=== PATIENT | female | born 1965 | race American Indian/Alaskan Native ===

== ENCOUNTER 2019-05-13 17:25 | Emergency (ER) | payer MEDICARE ==
[2019-05-13] MEDS ORDERED: MORPHINE 4 MG/1 ML INJ IV ONE ×2 (18:49→22:40)
--- NOTE | 2019-05-13 19:09 | Emergency Department Report ---
HPI - General Chief Complaint: Back Pain/Injury Time Seen by Provider: 05/13/19 18:16 - HPI HPI: 54-year-old female presents to the emergency department with 3 complaints. First, the patient complains of some upper left-sided back pain, around the shoulder blade, that started earlier today. It is sharp in nature and worsens with certain movements. Secondly, the patient complains of some generalized shortness of breath that also started today. She denies any significant cough, fever, nausea, vomiting. Lastly, the patient has a history of chronic eczema and she says that it has worsened over the past few days to the point where her skin is using and her hands have become raw. Patient has a primary care physician, Dr. Barkley, but has not seen them regarding her symptoms. 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 ED Past Medical Hx - Past Medical History Hx Diabetes: Yes Hx Asthma: Yes Additional medical history: ECZEMA - Social History Smoking Status: Former Smoker Substance Use Type: Prescribed - Medications Home Medications: Home Medications Medication Instructions Recorded Confirmed Last Taken Type Gabapentin [Neurontin] 300 mg PO Q8HR 05/13/19 05/13/19 Unknown History HYDROcodone/APAP 5-325 [[place] 1 each PO Q6HR PRN #10 tablet 05/13/19 Unknown Rx 5/325] LORazepam [Ativan] 0.5 mg PO BID PRN 05/13/19 05/13/19 Unknown History Prednisone [predniSONE 10 mg 10 mg PO .TAPER #1 tab.ds.pk 05/13/19 Unknown Rx (6-Day Pack, 21 Tabs)] Sulfamethoxazole/Trimethoprim 1 each PO BID #14 tablet 05/13/19 Unknown Rx [Bactrim DS TAB] carBAMazepine [Carbamazepine] 100 mg PO DAILY 05/13/19 05/13/19 Unknown History dilTIAZem 120 mg PO DAILY 05/13/19 05/13/19 Unknown History hydrOXYzine HCL [Atarax] 25 mg PO Q8H PRN #20 05/13/19 Unknown Rx metHOTREXate(DOSE WEEKLY ONLY) 2.5 mg PO QWEEK 05/13/19 05/13/19 Unknown History [metHOTREXate (DOSE WEEKLY ONLY)] predniSONE [Deltasone] 10 mg PO QDAY 05/13/19 05/13/19 Unknown History ED Review of Systems ROS: Stated complaint: SOB LT BACK PAIN Other details as noted in HPI Comment: All other systems reviewed and negative Constitutional: denies: chills, fever Respiratory: shortness of breath. denies: cough Cardiovascular: denies: chest pain, edema Gastrointestinal: denies: abdominal pain, vomiting Genitourinary: denies: dysuria, discharge Musculoskeletal: back pain. denies: joint swelling Skin: rash, lesions Neurological: denies: headache, numbness Physical Exam - Physical Exam Vital Signs: Vital Signs 05/13/19 05/13/19 17:30 18:20 Temperature 98.9 F Pulse Rate 119 H 109 H Respiratory 19 18 Rate Blood Pressure 134/84 Blood Pressure 132/46 [Left] O2 Sat by Pulse 96 96 Oximetry Physical Exam: GENERAL: The patient is well-developed well-nourished. HENT: Normocephalic. Atraumatic. Patient has moist mucous membranes. EYES: Extraocular motions are intact. Pupils equal reactive to light bilaterally. NECK: Supple. Trachea is midline. CHEST/LUNGS: Clear to auscultation. No cough or during examination. No accessory muscle use. There is no respiratory distress noted. HEART/CARDIOVASCULAR: Regular. There is mild tachycardia. There is no murmur. ABDOMEN: Abdomen is soft, nontender. Patient has normal bowel sounds. There is no abdominal distention. SKIN: Patient has slightly thickened skin and some mild erythema to the majority of her skin. The hands appear raw and excoriated down to an underlying skin layer. There is no bleeding, weeping or drainage. Patient has multiple excoriations all of her body consistent with her complaint of pruritus. NEURO: The patient is awake, alert, and oriented. The patient is cooperative. The patient has no focal neurologic deficits. Normal speech. MUSCULOSKELETAL: There is no tenderness or deformity. There is no limitation range of motion. There is no evidence of acute injury. BACK: There is no midline thoracic or lumbar tenderness to palpation, step-off or deformity. There is some reproducible thoracic left-sided paraspinal tenderness to palpation just inside of the scapula. ED Course Vital Signs 05/13/19 05/13/19 17:30 18:20 Temperature 98.9 F Pulse Rate 119 H 109 H Respiratory 19 18 Rate Blood Pressure 134/84 Blood Pressure 132/46 [Left] O2 Sat by Pulse 96 96 Oximetry ED Medical Decision Making - Lab Data Result diagrams: 05/13/19 19:19 05/13/19 19:19 - EKG Data -: EKG Interpreted by Me EKG shows normal: sinus rhythm, axis, intervals, QRS complexes, ST-T waves Rate: normal - EKG Data When compared to previous EKG there are: previous EKG unavailable Interpretation: normal EKG - Radiology Data Radiology results: report reviewed, image reviewed interpreted by me: Chest x-ray does not show any acute process. There are no pleural effusions, obvious pneumonia and there is no pneumothorax. CTA CHEST WITH IV CONTRAST INDICATION: SOB, elevated dimer. TECHNIQUE: Axial CT images were obtained through the chest after injection of 100 MLO Omnipaque 350 IV contrast. 3 plane MIP reconstructions were produced. All CT scans at this location are performed using CT dose reduction for ALARA by means of automated exposure control. COMPARISON: One view of the chest from earlier today. FINDINGS: PULMONARY ARTERIES: Well-opacified without distinct thromboemboli. AO RTA AND ARTERIES: No acute abnormality. MEDIASTINUM: No significant abnormality of the heart or other mediastinal structures. LUNGS: No suspicious consolidation, nodule or mass. No pneumothorax or pleural effusion. ADDITIONAL FINDINGS: There is bilateral axillary lymphadenopathy. An index node located superiorly on the right measures 1.8 cm in short axis dimension on image 19 of series 2. UPPER ABDOMEN: No acute findings. BONES: No significant osseous abnormality. IMPRESSION: 1. No CT evidence for pulmonary embolism. 2. Nonspecific bilateral axillary lymphadenopathy without additional evidence of malignancy in the chest. - Medical Decision Making This patient presents to the emergency department with 3 complaints: Shortness of breath, upper left-sided back pain, and her skin condition. The patient's CBC did not show any significant leukocytosis or anemia. Metabolic panel was mostly unremarkable. The patient had a slightly elevated lactic acid level that came down to a normal level after some treatment. She had a chest x-ray that did not show any pleural effusions, pneumonia, pneumothorax, focal consolidation, or any other acute process. After an elevated d-dimer level, the patient had a CT angiography of the chest that did not show any pulmonary embolism. Incidentally there was some axillary lymphadenopathy found but no underlying malignancy. The patient has history of eczema and presents with a diffuse skin condition that includes slightly erythematous and thickened skin to the majority of her body with her hands appear raw from excoriations and picking at scabs and wounds. There is no warmth, fluctuance. Patient was given some pain medication, IV fluid resuscitation, Solu-Medrol and antibiotics. Vital signs are stable throughout her ED course including being afebrile. The patient has good follow-up with both primary care and dermatology. She appears safe for discharge home at this time. She's been given another referral for dermatology, and a referral for an orthopedist regarding her back pain. Patient will be discharged home with antibiotics, steroids, Atarax for pruritus, and pain medication. She will return to the emergency Department with any worsening of her symptoms or any acute distress. - Differential Diagnosis eczema, dermatitis, pneumonia, PE Critical care attestation.: If time is entered above; I have spent that time in minutes in the direct care of this critically ill patient, excluding procedure time. ED Disposition Clinical Impression: Dermatitis, Shortness of breath Back pain Qualifiers: Back pain location: thoracic back pain Chronicity: unspecified Back pain laterality: left Qualified Code(s): M54.6 - Pain in thoracic spine Eczema Qualifiers: Eczema type: unspecified Qualified Code(s): L30.9 - Dermatitis, unspecified Disposition: DC-01 TO HOME OR SELFCARE Is pt being admited?: No Condition: Stable Instructions: Eczema (ED), Acute Rash (ED), Dyspnea (ED), Back Pain (ED) Additional Instructions: Please follow-up with your primary care physician and agricultural research engineer in the next few days. I have given you a referral for a local orthopedist, Dr. Cruz, to follow up regarding your back pain. I have also given you a number referral for a agricultural research engineer, Dr. Tavera. Take the medications as prescribed. Return to the emergency Department with any worsening of your symptoms or any acute distress. You have been prescribed a medication that is sedating and therefore should not be taken prior to driving, working, and responsible for children and in no way should be mixed with alcohol of any quantity. Prescriptions: hydrOXYzine HCL [Atarax] 25 mg PO Q8H PRN #20 PRN Reason: Itching Sulfamethoxazole/Trimethoprim [Bactrim DS TAB] 1 each PO BID #14 tablet HYDROcodone/APAP 5-325 [[place] 5/325] 1 each PO Q6HR PRN #10 tablet PRN Reason: Pain Prednisone [predniSONE 10 mg (6-Day Pack, 21 Tabs)] 10 mg PO .TAPER #1 tab.ds.pk Referrals: PRIMARY CARE, [Primary Care Provider] - 2-3 Days GISELL CRUZ MD [Staff Physician] - 2-3 Days KHUSHI TAVERA MD [Staff Physician] - 2-3 Days Time of Disposition: 23:44
[2019-05-13] MEDS ORDERED: SODIUM CHLORIDE 0.9% 1000 ML 1,000 ML IV ONE ×2 (19:18→20:46)
[2019-05-13 19:40] LABS: Basophils % (Auto) 0.2 % (0.0-1.8); Eosinophils # (Auto) 1.6 K/mm3 (0.0-0.4); Eosinophils % (Auto) 14.2 % (0.0-4.3); Hemoglobin 13.1 gm/dl (10.1-14.3); Lymphocytes # (Auto) 1.2 K/mm3 (1.2-5.4); Lymphocytes % (Auto) 10.9 % (13.4-35.0); Mean Corpuscular HGB Conc 33 % (30-34); Mean Corpuscular Volume 91 fl (79-97); Monocytes # (Auto) 0.7 K/mm3 (0.0-0.8); Monocytes % (Auto) 6.5 % (0.0-7.3); Platelet Count 399 K/mm3 (140-440); Red Blood Count 4.43 M/mm3 (3.65-5.03)
[2019-05-13] MEDS ORDERED: VANCOMYCIN/NS 1 GM/250 ML 1 GM/250 ML BAG IV ONE (19:49)
[2019-05-13 20:02] LABS: Alanine Aminotransferase 8 units/L (7-56); Albumin 3.2 g/dL (3.9-5); BUN/Creatinine Ratio 13; Blood Urea Nitrogen 10 mg/dL (7-17); Calcium 9.1 mg/dL (8.4-10.2); Hemolysis Index 29
[2019-05-13] MEDS ORDERED: diphenhydrAMINE 50 MG/ML VIAL IV ONE ×2 (20:53→22:40)
[2019-05-13] MEDS ORDERED: methylPREDNISolone Sod Succinate 125 MG/2 ML INJ IV ONE (20:54)
--- NOTE | 2019-05-13 21:23 | XRay Report ---
CHEST 1 VIEW 05/13/2019 8:45 PM INDICATION / CLINICAL INFORMATION: SOB. COMPARISON: None available. FINDINGS: SUPPORT DEVICES: None. HEART / MEDIASTINUM: No significant abnormality. LUNGS / PLEURA: No significant pulmonary or pleural abnormality. No pneumothorax. ADDITIONAL FINDINGS: No significant additional findings. IMPRESSION: 1. No acute abnormality of the chest. Signer Name: Caleb Alfred MD Signed: 05/13/2019 9:18 PM Workstation Name: [id number]
--- NOTE | 2019-05-13 22:37 | Cat Scan Report ---
CTA CHEST WITH IV CONTRAST INDICATION: SOB, elevated dimer. TECHNIQUE: Axial CT images were obtained through the chest after injection of 100 MLO Omnipaque 350 IV contrast. 3 plane MIP reconstructions were produced. All CT scans at this location are performed using CT dose reduction for ALARA by means of automated exposure control. COMPARISON: One view of the chest from earlier today. FINDINGS: PULMONARY ARTERIES: Well-opacified without distinct thromboemboli. AORTA AND ARTERIES: No acute abnormality. MEDIASTINUM: No significant abnormality of the heart or other mediastinal structures. LUNGS: No suspicious consolidation, nodule or mass. No pneumothorax or pleural effusion. ADDITIONAL FINDINGS: There is bilateral axillary lymphadenopathy. An index node located superiorly on the right measures 1.8 cm in short axis dimension on image 19 of series 2. UPPER ABDOMEN: No acute findings. BONES: No significant osseous abnormality. IMPRESSION: 1. No CT evidence for pulmonary embolism. 2. Nonspecific bilateral axillary lymphadenopathy without additional evidence of malignancy in the ch est. Signer Name: Caleb Alfred MD Signed: 05/13/2019 10:32 PM Workstation Name: [id number]
[2019-05-13 23:19] LABS: Bilirubin,Urine NEG (Negative); Color,Urine Yellow (Yellow)
[2019-05-13 23:20] LABS: Blood,Urine NEG (Negative); Protein,Urine <15 mg/dL mg/dL (Negative)
[2019-05-13 23:28] LABS: Mucus,Urine FEW /HPF
[2019-05-14 00:43] VITALS: BP 157/89
== END 2019-05-14 00:30 | disposition home or self-care (01) ==
LOC: ED 17:25
DX: M54.6 Pain in thoracic spine (principal); F03.90 Unspecified dementia, unspecified severity, without behavioral disturbance, psychotic disturbance, mood disturbance, and anxiety; R06.02 Shortness of breath; L30.9 Dermatitis, unspecified; E11.9 Type 2 diabetes mellitus without complications; J45.909 Unspecified asthma, uncomplicated; Z87.891 Personal history of nicotine dependence; Z91.013 Allergy to seafood; Z79.899 Other long term (current) drug therapy
CPT/HCPCS: 36415; 71045; 71275; 80053; 81001; 82140; 84484; 85025; 85379; 87040; 93005; 93010; 96365; 96375; 96376; 99285; J1200; J2270; J2930; J3370; J7030; Q9967

== ENCOUNTER 2019-05-29 15:30 | Emergency (ER) | payer MEDICARE ==
[2019-05-29] MEDS ORDERED: SODIUM CHLORIDE 0.9% 1000 ML 1,000 ML IV ONE (17:07)
[2019-05-29] MEDS ORDERED: methylPREDNISolone Sod Succinate 125 MG/2 ML INJ IV ONE (17:08)
[2019-05-29] MEDS ORDERED: MORPHINE 4 MG/1 ML INJ IV ONE (17:08)
[2019-05-29] MEDS ORDERED: ONDANSETRON 4 MG/2 ML INJ IV ONE (17:08)
--- NOTE | 2019-05-29 17:12 | Emergency Department Report ---
ED General Adult HPI - General Chief complaint: Dyspnea/Respdistress Stated complaint: CHRIS Time Seen by Provider: 05/29/19 16:58 Source: EMS Mode of arrival: Stretcher Limitations: No Limitations - History of Present Illness Initial comments: Patient is 54 years old female with history of severe eczema, asthma and diabetes. Patient recently moved by her family from [place] and has been followed by [facility]. Patient brought to the emergency room via EMS with a chief complaint of shortness of breath, back pain and generalized pain secon rl to eczema. Patient was seen here on May 13 and had a CTA chest which is negative for PE or malignancy. This and stated that she had the same symptoms from last time. The patient denied any chest pain, abdominal pain, nausea or vomiting. - Related Data Home Medications Medication Instructions Recorded Confirmed Last Taken Gabapentin [Neurontin] 300 mg PO Q8HR 05/13/19 05/13/19 Unknown LORazepam [Ativan] 0.5 mg PO BID PRN 05/13/19 05/13/19 Unknown carBAMazepine [Carbamazepine] 100 mg PO DAILY 05/13/19 05/13/19 Unknown dilTIAZem 120 mg PO DAILY 05/13/19 05/13/19 Unknown metHOTREXate(DOSE WEEKLY ONLY) 2.5 mg PO QWEEK 05/13/19 05/13/19 Unknown [metHOTREXate (DOSE WEEKLY ONLY)] predniSONE [Deltasone] 10 mg PO QDAY 05/13/19 05/13/19 Unknown Previous Rx's Medication Instructions Recorded Last Taken Type HYDROcodone/APAP 5-325 [[place] 1 each PO Q6HR PRN #10 tablet 05/13/19 Unknown Rx 5/325] Prednisone [predniSONE 10 mg 10 mg PO .TAPER #1 tab.ds.pk 05/13/19 Unknown Rx (6-Day Pack, 21 Tabs)] Sulfamethoxazole/Trimethoprim 1 each PO BID #14 tablet 05/13/19 Unknown Rx [Bactrim DS TAB] hydrOXYzine HCL [Atarax] 25 mg PO Q8H PRN #20 05/13/19 Unknown Rx Allergies Allergy/AdvReac Type Severity Reaction Status Date / Time egg AdvReac Hives Verified 05/13/19 17:28 Fish Containing Products AdvReac Hives Verified 05/13/19 17:28 ED Review of Systems ROS: Stated complaint: CHRIS Other details as noted in HPI Comment: All other systems reviewed and negative Constitutional: denies: chills, fever Respiratory: shortness of breath. denies: cough, orthopnea, SOB with exertion, SOB at rest, wheezing Cardiovascular: denies: chest pain, palpitations Gastrointestinal: denies: abdominal pain, nausea, vomiting, diarrhea, constipation Musculoskeletal: back pain, arthralgia, myalgia. denies: joint swelling Neurological: denies: headache, weakness, numbness, paresthesias, confusion, abnormal gait ED Past Medical Hx - Past Medical History Hx Diabetes: Yes Hx Asthma: Yes Additional medical history: ECZEMA - Social History Smoking Status: Never Smoker Substance Use Type: Marijuana - Medications Home Medications: Home Medications Medication Instructions Recorded Confirmed Last Taken Type Gabapentin [Neurontin] 300 mg PO Q8HR 05/13/19 05/13/19 Unknown History HYDROcodone/APAP 5-325 [[place] 1 each PO Q6HR PRN #10 tablet 05/13/19 Unknown Rx 5/325] LORazepam [Ativan] 0.5 mg PO BID PRN 05/13/19 05/13/19 Unknown History Prednisone [predniSONE 10 mg 10 mg PO .TAPER #1 tab.ds.pk 05/13/19 Unknown Rx (6-Day Pack, 21 Tabs)] Sulfamethoxazole/Trimethoprim 1 each PO BID #14 tablet 05/13/19 Unknown Rx [Bactrim DS TAB] carBAMazepine [Carbamazepine] 100 mg PO DAILY 05/13/19 05/13/19 Unknown History dilTIAZem 120 mg PO DAILY 05/13/19 05/13/19 Unknown History hydrOXYzine HCL [Atarax] 25 mg PO Q8H PRN #20 05/13/19 Unknown Rx metHOTREXate(DOSE WEEKLY ONLY) 2.5 mg PO QWEEK 05/13/19 05/13/19 Unknown History [metHOTREXate (DOSE WEEKLY ONLY)] predniSONE [Deltasone] 10 mg PO QDAY 05/13/19 05/13/19 Unknown History ED Physical Exam - General Limitations: No Limitations General appearance: alert, in no apparent distress - Head Head exam: Present: atraumatic, normocephalic, normal inspection - Eye Eye exam: Present: normal appearance - ENT ENT exam: Present: normal exam, normal orophraynx, mucous membranes moist - Neck Neck exam: Present: normal inspection, full ROM. Absent: tenderness, meningismus, lymphadenopathy, thyromegaly - Respiratory Respiratory exam: Present: normal lung sounds bilaterally - Cardiovascular Cardiovascular Exam: Present: tachycardia - GI/Abdominal GI/Abdominal exam: Present: soft, normal bowel sounds. Absent: distended, tenderness, rebound, rigid - Extremities Exam Extremities exam: Present: normal inspection, full ROM - Neurological Exam Neurological exam: Present: alert, oriented X3, CN II-XII intact, normal gait, reflexes normal. Absent: motor sensory deficit - Psychiatric Psychiatric exam: Present: normal mood - Skin Skin exam: Present: warm, rash, other (severe, generalized eczema) ED Course Vital Signs 05/29/19 05/29/19 16:10 19:54 Temperature 97.7 F Pulse Rate 117 H 87 Respiratory 24 17 Rate Blood Pressure 137/84 Blood Pressure 128/74 [Left] O2 Sat by Pulse 100 96 Oximetry ED Medical Decision Making - Lab Data Result diagrams: 05/29/19 17:46 05/29/19 17:46 - EKG Data -: EKG Interpreted by Dc EKG shows normal: sinus rhythm Rate: normal - EKG Data Interpretation: no acute changes - Radiology Data Radiology results: report reviewed - Medical Decision Making Patient is 54 years old female with history of severe eczema, asthma and diabetes. Patient recently moved by her family from [place] and has been followed by [facility]. Patient brought to the emergency room via EMS with a chief complaint of shortness of breath, back pain and generalized pain secondary to eczema. Patient was seen here on May 13 and had a CTA chest which is negative for PE or malignancy. Patient stated that she had the same symptoms from last time. The patient denied any chest pain, abdominal pain, nausea or vomiting. Patient received morphine and Zofran and normal saline. Patient stated that she is feeling much better. Labs reviewed and is unremarkable except for mild hyponatremia. Patient advised to follow-up with her primary care physician and her dermatologists as a schedule. Patient also advised to return to the ER if symptoms are not improved. Critical care attestation.: If time is entered above; I have spent that time in minutes in the direct care of this critically ill patient, excluding procedure time. ED Disposition Clinical Impression: Shortness of breath, Generalized pain, Severe eczema Disposition: TO HOME OR SELFCARE Is pt being admited?: No Condition: Stable Instructions: Chronic Pain (ED), Eczema (ED) Referrals: PRIMARY CARE,MD [Primary Care Provider] - 3-5 Days
[2019-05-29 17:37] LABS: Bacteria,Urine 1+ /HPF (Negative); Bilirubin,Urine NEG (Negative); Blood,Urine SM (Negative); Color,Urine Yellow (Yellow); Mucus,Urine FEW /HPF; Protein,Urine <15 mg/dL mg/dL (Negative)
--- NOTE | 2019-05-29 17:49 | XRay Report ---
CHEST 1 VIEW INDICATION / CLINICAL INFORMATION: Dyspnea. COMPARISON: None available. FINDINGS: SUPPORT DEVICES: None. HEART / MEDIASTINUM: No significant abnormality. LUNGS / PLEURA: No significant pulmonary or pleural abnormality. No pneumothorax. ADDITIONAL FINDINGS: No significant additional findings. IMPRESSION: 1. No acute findings. Signer Name: Edmund Barron MD Signed: 05/29/2019 5:44 PM Workstation Name: [id number]
[2019-05-29] MEDS ORDERED: fentaNYL 250 MCG/5 ML INJ IV ONE (17:57)
[2019-05-29] MEDS ORDERED: fentaNYL 100 MCG/2 ML INJ IV ONE (18:00)
[2019-05-29 18:02] LABS: Hematocrit 38.3 % (30.3-42.9); Hemoglobin 12.7 gm/dl (10.1-14.3); Mean Corpuscular HGB Conc 33 % (30-34); Mean Corpuscular Volume 89 fl (79-97); Platelet Count 388 K/mm3 (140-440); Red Cell Distribution Width 15.9 % (13.2-15.2)
[2019-05-29 18:24] LABS: Alanine Aminotransferase 7 units/L (7-56); Albumin 2.6 g/dL (3.9-5); BUN/Creatinine Ratio 12; Blood Urea Nitrogen 6 mg/dL (7-17); Calcium 8.3 mg/dL (8.4-10.2); Hemolysis Index 16
[2019-05-29 20:02] VITALS: BP 128/74
[2019-05-29 20:55] LABS: Total Cells Counted 100
[2019-05-29 20:56] LABS: Anisocytosis Few; Band Neutrophils # (Manual) 0.1 K/mm3; Basophils % (Manual) 0 % (0.0-1.8); Ovalocytes Few; Platelet Estimate Consistent w Auto
== END 2019-05-29 22:33 | disposition home or self-care (01) ==
LOC: ED 15:30
DX: R06.02 Shortness of breath (principal); L30.9 Dermatitis, unspecified; M79.10 Myalgia, unspecified site; E11.9 Type 2 diabetes mellitus without complications; J45.909 Unspecified asthma, uncomplicated; F12.10 Cannabis abuse, uncomplicated; Z91.013 Allergy to seafood; Z91.012 Allergy to eggs; Z79.899 Other long term (current) drug therapy
CPT/HCPCS: 36415; 71045; 80053; 81001; 85007; 85025; 93005; 93010; 96374; 96375; 99285; J2405; J2930; J3010; J7030; J2270